=== PATIENT | female | born 1940 | race Caucasian/White ===

== ENCOUNTER 2022-06-23 12:37 | Outpatient (CLI) | payer MEDICARE, BC, SELFPAY ==
--- NOTE | 2022-06-23 13:00 | CRLHL7_ITS ---
For Patients: As a result of the Century Cures Act, medical imaging exams and procedure reports are released immediately into your electronic medical record. You may view this report before your referring provider. If you have questions, please contact your health care provider. Indication: Uterine cancer. Technique: CT chest abdomen and pelvis Comparison: CT chest and pelvis dated 06/14/21 Findings: Postoperative changes of right upper lobectomy. Large hiatal hernia again seen. 2 millimeter pleural based pulmonary nodule left upper lobe not seen on current study. Granuloma right middle lobe. Splenic granuloma. Liver unremarkable. Tiny hypodensity inferior hepatic lobe unchanged. Cholecystectomy pancreas unremarkable right renal cysts kidneys are unremarkable no abdominal aortic aneurysm. Urinary bladder unremarkable. Hysterectomy. No adenopathy is seen. Slightly prominent right external iliac node unchanged. No suspicious bony lesions are seen. Impression: No findings for metastatic disease in the chest abdomen or pelvis. Please note that all CT scans at this facility use dose modulation, iterative reconstruction, and/or weight-based dosing when appropriate to reduce radiation dose to as low as reasonably achievable. Dictated by Bonnie Hernandez MD @ 06/23/2022 2:49:51 PM (Electronically Signed)
== END 2022-06-23 12:38 | disposition home or self-care (01) ==
PROVIDERS: Visit Provider Clinical Nurse Specialist
DX: C54.9 Malignant neoplasm of corpus uteri, unspecified (principal)
CPT/HCPCS: 71260; 74177; 80053; 85025; Q9967

== ENCOUNTER 2022-07-14 14:37 | Outpatient (RCR) | payer MEDICARE, BC, SELFPAY | END 2023-01-10 23:59 | disposition home or self-care (01) | LOC: CCIC 14:37 | PROVIDERS: PCP Family Medicine; Visit Provider Nurse Practitioner Family | DX: C55 Malignant neoplasm of uterus, part unspecified (principal) | CPT/HCPCS: 99212; 99214; 99215 ==

== ENCOUNTER 2022-12-19 10:00 | Outpatient (CLI) | payer MEDICARE, BC, SELFPAY | END 2022-12-19 10:01 | disposition home or self-care (01) | LOC: INJ CL 10:03 | PROVIDERS: PCP Family Medicine; Visit Provider Family Medicine | DX: M51.36 Other intervertebral disc degeneration, lumbar region (principal); M54.16 Radiculopathy, lumbar region | CPT/HCPCS: 62323; J0702; Q9966 ==

== ENCOUNTER 2023-08-08 14:00 | Outpatient (RCR) | payer MEDICARE, BC, SELFPAY ==
[2023-07-27 08:44] LABS: Basophils Absolute Auto 0.06 K/uL (0.00-0.30); Basophils Percent Auto 0.9 % (0.0-3.0); Eosinophils Absolute Auto 0.33 K/uL (0.00-0.50); Eosinophils Percent Auto 4.7 % (0.0-7.0); Hematocrit 48.3 % (33.0-51.0); Hemoglobin* 16.3 gm/dL (12.0-16.0); Immature Granulocytes Abs Auto 0.02 K/uL (0.00-0.30); Immature Granulocytes Pct Auto 0.3 %; Lymphocytes Absolute Auto 1.89 K/uL (0.90-2.90); Lymphocytes Percent Auto 26.8 % (20-44); Mean Corpuscular HGB Conc 34 gm/dL (32-36); Mean Corpuscular Hemoglobin 30 pg (26-34); Mean Corpuscular Volume 88 fL (80-100); Monocytes Percent Auto 9.8 % (0.0-11.0); Neutrophils Absolute Auto 4.06 K/uL (1.7-7.0); Neutrophils Percent Auto 57.5 % (42.0-72.0); Platelet Count* 203 K/uL (140-440); Red Blood Count 5.51 m/uL (4.00-5.20); White Blood Count* 7.05 K/uL (4.50-11.00)
[2023-07-27 08:47] LABS: Slide Review Reflex No
[2023-07-27 09:01] LABS: Albumin* 4.4 g/dL (3.3-5.0); Chloride* 105 mmol/L (96-114); Sodium* 140 mmol/L (135-149)
[2023-07-27 09:02] LABS: Potassium* 4.1 mmol/L (3.6-5.1)
[2023-07-27 09:04] LABS: Alanine Aminotransferase* 20 U/L (4-35); Alkaline Phosphatase* 70 U/L (40-150); Anion Gap 9 mEq/L (7-15); Aspartate Amino Transferase* 38 U/L (12-35); Bilirubin Total* 1.2 mg/dL (0.1-1.5); Blood Urea Nitrogen* 21 mg/dL (7-30); Carbon Dioxide* 26 mmol/L (20-32); Creatinine* 0.9 mg/dL (0.5-1.5); Estimated Glomerular Filt Rate 64 ml/min; Total Protein* 8.2 g/dL (6.0-8.3)
[2023-07-27 09:05] LABS: Calcium* 9.5 mg/dL (8.4-10.6); Glucose* 99 mg/dL (60-115)
== END 2024-01-23 23:59 | disposition home or self-care (01) ==
LOC: CCIC 14:00
PROVIDERS: Nurse Practitioner Family; PCP Nurse Practitioner; Referring Provider Nurse Practitioner; Visit Provider Internal Medicine Hematology & Oncology
DX: C55 Malignant neoplasm of uterus, part unspecified (principal); R19.09 Other intra-abdominal and pelvic swelling, mass and lump
CPT/HCPCS: 36415; 71260; 74177; 80053; 85025; 99212; 99214; Q9967

== ENCOUNTER 2024-01-08 10:01 | Outpatient (CLI) | payer MEDICARE, BC, SELFPAY | END 2024-01-08 10:02 | disposition home or self-care (01) | LOC: INJ CL 10:02 | PROVIDERS: PCP Family Medicine; Visit Provider Family Medicine | DX: M54.16 Radiculopathy, lumbar region (principal); M51.36 Other intervertebral disc degeneration, lumbar region | CPT/HCPCS: 62323; J0702; Q9966 ==

== ENCOUNTER 2025-01-27 09:43 | Outpatient (CLI) | payer MEDICARE, BC, SELFPAY | END 2025-01-27 09:44 | disposition home or self-care (01) | LOC: INJ CL 09:44 | PROVIDERS: PCP Family Medicine; Visit Provider Family Medicine | DX: M54.16 Radiculopathy, lumbar region (principal); M51.369 Other intervertebral disc degeneration, lumbar region without mention of lumbar back pain or lower extremity pain | CPT/HCPCS: 62323; J0702; Q9966 ==